=== PATIENT | female | born 1990 | race African-American/Black ===

== ENCOUNTER 2019-02-20 12:23 | Emergency (ER) | payer SELFPAY ==
[~2019-02-20] VITALS: Ht 160 cm; Wt 89.4 kg
[2019-02-20 12:32] VITALS: BP 113/59
[2019-02-20] MEDS ORDERED: ALBU2.5V8 INH (12:44)
--- NOTE | 2019-02-20 13:22 | PHYS DOC ---
Past Medical History Past Medical History: Asthma, Other Additional Past Medical Histor: eczema, seasonal allergies Past Surgical History: Other Additional Past Surgical Histo: cervical repair Additional Information: 5 cigarettes daily Alcohol Use: Occasionally Drug Use: None Adult General Chief Complaint Chief Complaint: PELVIC PAIN HPI HPI Patient is a 28 year old female who presents requesting a test, patient states her last menstrual cycle was December 31, 2018. She states since yesterday she's had intermittent episodes of nausea and 2 out of 10 pelvic pain and is concerned she could be . Denies any vaginal bleeding. Denies any back pain or cramping. Review of Systems Review of Systems Constitutional: Denies fever or chills [] Eyes: Denies change in visual acuity, redness, or eye pain [] HENT: Denies nasal congestion or sore throat [] Respiratory: Denies cough or shortness of breath [] Cardiovascular: No additional information not addressed in HPI [] GI: Reports pelvic pain with nausea, denies vomiting, bloody stools or diarrhea [] : Denies dysuria or hematuria [] Musculoskeletal: Denies back pain or joint pain [] Integument: Denies rash or skin lesions [] Neurologic: Denies headache, focal weakness or sensory changes [] All other systems were reviewed and found to be within normal limits, except as documented in this note. Allergies Allergies Allergies Uncoded Allergies Type Severity Reaction Last Updated Verified seafood Allergy Severe anaphylaxis 02/20/19 Physical Exam Physical Exam Constitutional: Well developed, well nourished, no acute distress, non-toxic appearance. [] HENT: Normocephalic, atraumatic, bilateral external ears normal, oropharynx moist, no oral exudates, nose normal. [] Eyes: PERRLA, EOMI, conjunctiva normal, no discharge. [] Neck: Normal range of motion, no tenderness, supple, no stridor. [] Cardiovascular:Heart rate regular rhythm, no murmur [] Lungs & Thorax: Bilateral breath sounds clear to auscultation [] Abdomen: Bowel sounds normal, soft, no tenderness, no masses, no pulsatile masses. [] Skin: Warm, dry, no erythema, no rash. [] Back: No tenderness, no CVA tenderness. [] Extremities: No tenderness, no cyanosis, no clubbing, ROM intact, no edema. [] Neurologic: Alert and oriented X 3, normal motor function, normal sensory function, no focal deficits noted. [] Psychologic: Affect normal, judgement normal, mood normal. [] Current Patient Data Vital Signs Vital Signs Date Time Temp Pulse Resp B/P (MAP) Pulse Ox O2 Delivery O2 Flow Rate FiO2 02/20/19 12:32 98.8 80 20 113/59 (77) 97 Room Air 98.8 Lab Values Laboratory Tests Test 02/20/19 12:34 POC Urine HCG, Qualitative Hcg negative (Negative) EKG EKG [] Radiology/Procedures Radiology/Procedures [] Course & Med Decision Making Course & Med Decision Making Pertinent Labs and Imaging studies reviewed. (See chart for details) This is a 28-year-old female patient presented to the ED today complaining of pelvic pain and requesting a test,last menstrual cycle was December 31, 2018. Negative urine hCG, results were communicated to patient, she left. Recommended she follows up with an [facility]. Dragon Disclaimer Dragon Disclaimer This electronic medical record was generated, in whole or in part, using a voice recognition dictation system. Departure Departure Impression: Primary Impression: Pelvic pain Additional Impression: test negative Disposition: HOME, SELF-CARE Condition: STABLE Referrals: NO PCP (PCP) NATHANAEL GAMA MD follow up in 1 week Patient Instructions: Pelvic Pain, Female, Tests Additional Instructions: Your test was negative. We highly encouraged to follow up with an [facility]. Problem Qualifiers ROBERTO ESPINOSA NHUNG February 20, 2019 13:22
== END 2019-02-20 13:26 | disposition home or self-care (01) ==
LOC: ER 12:23
DX: R10.2 Pelvic and perineal pain (principal); Z32.02 Encounter for pregnancy test, result negative; F17.210 Nicotine dependence, cigarettes, uncomplicated; J45.909 Unspecified asthma, uncomplicated; Z91.013 Allergy to seafood
CPT/HCPCS: 81025; 99282